=== PATIENT | male | born 1980 | race Caucasian/White ===

== ENCOUNTER 2019-05-11 11:08 | Emergency (ER) | payer OTHER ==
[2019-05-11 11:23] VITALS: BP 122/87; TEMP 98.4; BMI 30.5
--- NOTE | 2019-05-11 11:47 | PDOC ---
History of Present Illness - General Chief Complaint: Chest Pain Stated Complaint: CHEST PAIN Time Seen by Provider: 05/11/19 11:36 - History of Present Illness Initial Comments: 05/11/19 11:42 39 yo M with h/o syncope, asthma who p/w wheezing, and right sided pleuritic back pain. Patient reports 3 days of wheezing, and improving, intermittent, right sided, plueiritc chest pressure radiating to right lateral ribs. Improved with OTC Motrin. Worse with right sided rotational movement, pressure, and deep inhalation or exhalation. Pain now resolved at rest. Patient endorses 2-3 weeks of rhinnorhea, dry non productive cough, now resolved. Endorses daily duoneb use 7-8 times per day with three uses today. State that he typically has seasonal allergic symptoms that exacerbate his asthma. Patient arrives from urgent care for concern of PE, with HR 110. Patient denies h/o PE/DVT, recent travel, prolonged immobilization, malignancy, hormone therapy, recent trauma or surgery. Denies SOB, palpitations, leg pains/swelling, abdominal pain, urinary complaints, lightheadedness, hematuria, BPR, weakness, sensory changes. Denies elicit drug use, IVDA, tobacco use. Past History - Past Medical History Allergies/Adverse Reactions: Allergies Allergy/AdvReac Type Severity Reaction Status Date / Time No Known Allergies Allergy Verified 05/11/19 11:21 Home Medications: Ambulatory Orders Albuterol Sulfate [Proventil Hfa] 1 - 2 inh PO TID PRN #1 hfa.aer.ad 04/30/15 predniSONE [Deltasone -] See Taper PO DAILY #7 tablet MDD 2 tab 05/11/19 Asthma: Yes COPD: No - Surgical History Appendectomy: Yes - Immunization History Immunization Up to Date: Yes - Psycho Social/Smoking Cessation Hx Smoking Status: Yes Smoking History: Never smoked Number of Cigarettes Smoked Daily: 0 Hx Alcohol Use: Yes (occasion) Drug/Substance Use Hx: No Review of Systems - Review of Systems Comments:: 05/11/19 11:42 GENERAL/CONSTITUTIONAL: No fever or chills. No weakness. HEAD, EYES, EARS, NOSE AND THROAT: No change in vision. No ear pain or discharge. No sore throat. CARDIOVASCULAR: + chest pain. No shortness of breath RESPIRATORY: +cough, wheezing. No hemoptysis. GASTROINTESTINAL: No nausea, vomiting, diarrhea or constipation. GENITOURINARY: No dysuria, frequency, or change in urination. MUSCULOSKELETAL: No joint or muscle swelling or pain. No neck or back pain. SKIN: No rash NEUROLOGIC: No headache, vertigo, loss of consciousness, or change in strength/ sensation. ENDOCRINE: No increased thirst. No abnormal weight change HEMATOLOGIC/LYMPHATIC: No anemia, easy bleeding, or history of blood clots. ALLERGIC/IMMUNOLOGIC: No hives or skin allergy. *Physical Exam - Vital Signs Last Vital Signs Temp Pulse Resp BP Pulse Ox 98.4 F 110 H 16 122/87 99 05/11/19 11:21 05/11/19 11:21 05/11/19 11:21 05/11/19 11:21 05/11/19 11:21 - Physical Exam Comments: 05/11/19 11:42 GENERAL: Awake, alert, and fully oriented, in no acute distress HEAD: No signs of trauma, normocephalic, atraumatic EYES: PERRLA, EOMI, sclera anicteric, conjunctiva clear ENT: Hearing grossly normal, nares patent, oropharynx clear without exudates. Moist mucosa NECK: Normal ROM, supple, no lymphadenopathy, JVD, or masses LUNGS: No distress, speaks full sentences, clear to auscultation bilaterally HEART: Regular rate and rhythm, normal S1 and S2, no murmurs, rubs or gallops, peripheral pulses normal and equal bilaterally. ABDOMEN: Soft, nontender, normoactive bowel sounds. No guarding, no rebound. No masses EXTREMITIES : Normal inspection, Normal range of motion, no edema. No clubbing or cyanosis NEUROLOGICAL: Cranial nerves II through XII grossly intact. Normal speech, normal gait, no focal sensorimotor deficits SKIN: Warm, Dry, normal turgor, no rashes or lesions noted ED Treatment Course - LABORATORY CBC & Chemistry Diagram: 05/11/19 12:15 05/11/19 12:15 Medical Decision Making - Medical Decision Making 05/11/19 11:50 39 yo M with h/o syncope, asthma who p/w wheezing, and right sided pleuritic throracic back pain. HR 110, vitals otherwise wnl, AF, A&Ox3. Patient endorses albuterol use 7-8 times per day. Physical exam unremarkable. Denies SOB, stridor , hemoptysis, palpitations, leg pains/swelling, abdominal pain, urinary complaints, lightheadedness, hematuria, BPR, weakness, sensory changes. Absent neuro deficits. PERC +, Low risk Wells PE. ACS/VA r/o. Possible viral URI, asthma, PNA, Pleural effusion. Will reassess. ED Course: Prednisone 60 mg. Pred sent to pharm. Pt. advised to f/u PMD EKG: NSR with absent BOY, STD. Nml interval duration and axis. Nml R wave progression. Absent Q waves. Patient stable, resting comfortably 05/11/19 13:07 CBC,CMP: Unremarkable Trop: Neg 05/11/19 13:19 CXR: No acute pathology Patient stable for d/c with return precautions. Repeat HR 85, O2 99 % D-dimer 247 Discharge - Discharge Information Problems reviewed: Yes Clinical Impression/Diagnosis: Acute asthma, Pleuritic chest pain Condition: Stable Disposition: HOME - Admission No - Additional Discharge Information Prescriptions: predniSONE [Deltasone -] See Taper PO DAILY #7 tablet MDD 2 tab - Follow up/Referral Referrals: Kiah Morel MD [Primary Care Provider] - Sunny King MD [Staff Physician] - - Patient Discharge Instructions Patient Printed Discharge Instructions: DI for Atypical Chest Pain Additional Instructions: Please return to the emergency department with any new or worsening symptoms or concerns. Please follow up with your primary care physician within 72 hours. Please take steroid taper as prescribed, albuterol as needed for symptom relief. - Post Discharge Activity
[2019-05-11] MEDS ORDERED: predniSONE 20 MG TABLET (UD) PO ONE (12:05)
[2019-05-11] MEDS ORDERED: predniSONE 20 MG TABLET (UD) ONE (12:21)
[2019-05-11 12:26] LABS: BASO % 0.9 % (0-2.0); HEMATOCRIT 43.5 % (35.4-49); LYMPH % 13.3 % (8-40); MCH 30.5 pg (25.7-33.7); MCHC 34.4 g/dl (32.0-35.9); MEAN CELL VOLUME 88.5 fl (80-96); MEAN PLT VOLUME 6.8 fl (7.5-11.1); MONO % 7.9 % (3.8-10.2); NEUT % 72.9 % (42.8-82.8); PLATELET COUNT 267 K/MM3 (134-434); RBC 4.92 M/mm3 (4.00-5.60); RDW 14.6 % (11.9-15.9); WHITE BLOOD COUNT 7.6 K/mm3 (4.0-10.0)
--- NOTE | 2019-05-11 12:26 | PDOC ---
Attending Attestation - Resident Resident Name: ArturoDellSrinath - ED Attending Attestation I have performed the following: I have examined & evaluated the patient, The case was reviewed & discussed with the resident, I agree w/resident's findings & plan - HPI HPI: 05/11/19 12:24 39 yo M with h/o syncope, asthma who p/w wheezing, and right sided pleuritic back pain x 3 days radiating to the right lateral side/ribs. improve with motrin. worse with movement, deep breathing. improved with rest. +2-3 weeks of rhinnorhea, dry non productive cough, now improved. Endorses daily duoneb use 7-8 times per day with three uses today. State that he typically has seasonal allergic symptoms that exacerbate his asthma. Patient arrives from urgent care for concern of PE, with HR 110. Patient denies h/o PE/ DVT, recent travel, prolonged immobilization, malignancy, hormone therapy, recent trauma or surgery. Denies elicit drug use, IVDA, tobacco use. - Physicial Exam PE: 05/11/19 12:25 Agree with the resident's HPI and PE as documented in the electronic medical record. 05/11/19 13:52 - Medical Decision Making 05/11/19 12:25 Vital Signs Temp Pulse Resp BP Pulse Ox 98.4 F 110 H 16 122/87 99 05/11/19 11:21 05/11/19 11:21 05/11/19 11:21 05/11/19 11:21 05/11/19 11:21 Vital signs reviewed, tachycardia as noted, normal saturations and breathing comfortably, afebrile. DDx SOB: ACS, PE, PTX, asthma exac, bronchitis, pulmonary edema, pleurisy, pneumonia, viral syndrome. effusion. anemia, electrolyte/metabolic derangements. repeat VS improved labs and lytes wnl. ekg unremarkable. cxr clear, no focal mass/infection/edema trop neg. dimer neg, unlikely dissection or PE. symptoms improved steroid albuterol inh. supportive care. could be bronchitis/asthma/viral syndrome discharge stable condition. made aware of impression and plan 05/11/19 13:36 05/11/19 13:37 05/11/19 13:52 Heart Score/ECG Review #1 ECG reviewed & interpreted by me at: 11:00 General ECG Interpretation: Sinus Rhythm, Normal Rate, Normal Intervals 05/11/19 13:35 sinus rhythm [address] or T wave elevations/derangements. normal intervals
[2019-05-11 12:44] LABS: INR 0.94 (0.83-1.09); PROTHROMBIN TIME (PATIENT) 11.1 SEC (9.7-13.0)
[2019-05-11 13:04] LABS: ALBUMIN 4.2 g/dl (3.4-5.0); ALK PHOS 76 U/L (45-117); ANION GAP 8 MMOL/L (8-16); BLOOD UREA NITROGEN 16.5 mg/dL (7-18); CHLORIDE 108 mmol/L (98-107); CO2 26 mmol/L (21-32); CREATININE 0.9 mg/dL (0.55-1.3); GLUCOSE,RANDOM 98 mg/dL (74-106); POTASSIUM 4.4 mmol/L (3.5-5.1); SGOT/AST 22 U/L (15-37); SGPT/ALT 34 U/L (13-61); SODIUM 142 mmol/L (136-145); TOT PROT 6.7 g/dl (6.4-8.2)
[2019-05-11 13:21] VITALS: PULSE 84
--- NOTE | 2019-05-11 14:39 | EKG ---
Test Reason : Blood Pressure : / mmHG Vent. Rate : 095 BPM Atrial Rate : 095 BPM P-R Int : 158 ms QRS Dur : 090 ms QT Int : 328 ms P-R-T Axes : 047 017 033 degrees QTc Int : 412 ms NORMAL SINUS RHYTHM POSSIBLE LEFT ATRIAL ENLARGEMENT BORDERLINE ECG WHEN COMPARED WITH ECG OF 01-FEB-2013 14:28, NO SIGNIFICANT CHANGE WAS FOUND Confirmed by NICOLE SAMUELS MD ([id number]) on 05/11/2019 2:39:30 PM Referred By: Confirmed By:NICOLE SAMUELS MD
== END 2019-05-11 13:57 | disposition home or self-care (01) ==
LOC: JER 11:08
DX: J45.901 Unspecified asthma with (acute) exacerbation (principal); R07.89 Other chest pain
CPT/HCPCS: 36415; 71046-TC-FY; 80053; 82550; 82553; 84484; 85025; 85379; 85610; 93005; 93010; 99283-25